=== PATIENT | female | born 1970 | race Caucasian/White ===

== ENCOUNTER 2023-12-27 08:57 | Emergency (ER) | payer MEDICAID, SELFPAY ==
[2023-12-27] VITALS (13 sets, daily range): BP systolic 115–168; BP diastolic 89–114; PULSE 79–104; RESP 11–22; TEMP 37.4; O2SAT 94–99
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
[2023-12-27 09:38] LABS: Abs Immature Grans 0.02 10^3/uL (0.0-0.06); Absolute Basophil Count 0.07 10^3/uL (0.0-0.2); Absolute Eosinophil Count 0.14 10^3/uL (0.0-0.7); Absolute Lymphocyte Count 1.69 10^3/uL (1.2-3.4); Absolute Monocyte Count 0.65 10^3/uL (0.1-0.8); Absolute Neutrophil Count 3.62 10^3/uL (1.2-6.7); Basophils % 1.1 %; Eosinophils % 2.3 %; HCT 39.6 % (36.0-46.0); HGB 13.4 g/dL (11.2-15.7); Immature Grans % 0.3 %; Lymphocytes % 27.3 %; MCHC 33.8 % (32.0-36.0); MCV 95 fL (80-95); Monocytes % 10.5 %; Neutrophils % 58.5 %; Platelet Count 303 10^3/uL (130-400); RBC 4.19 10^6/uL (3.93-5.22); RDW 13.3 % (11.7-14.6); RDW-SD 46.5 fL; WBC 6.19 10^3/uL (4.4-10.8)
[2023-12-27 09:40] LABS: Lactate 2.9 mmol/L (0.6-1.4)
[2023-12-27] MEDS: Ondansetron 4 MG/2 ML VIAL IVP (09:49)
[2023-12-27] MEDS: LORazepam 2 MG/ML VIAL 1 MG IVP (09:49)
[2023-12-27 09:53] LABS: Bilirubin Negative (Negative); Blood Negative (Negative); Clarity Clear (Clear); Glucose Negative (Negative); Ketones Negative (Negative); Leukocyte Esterase Negative (Negative); Nitrite Negative (Negative); Urobilinogen 0.2 mg/dL (Up to 0.2)
[2023-12-27] MEDS: MAGNESIUM SULFATE 8.12 MEQ, MULTIVITAMIN 10 ML, THIAMINE 100 MG, FOLIC ACID 1 MG in Nor... 168.867 MG IV (09:57)
[2023-12-27 10:10] LABS: ALT 148 U/L (14-59); AST 110 U/L (15-37); Albumin 4.4 g/dL (3.4-5.0); Alkaline Phosphatase 114 U/L (46-116); Anion Gap 14.2 mmol/L (3-11); BUN 6 mg/dL (7-18); Bilirubin, Direct 0.2 mg/dL (0.0-0.2); Bilirubin, Total 0.67 mg/dL (0.2-1.0); CO2 24.8 mmol/L (21.0-32.0); CREATININE 0.6 mg/dL (0.55-1.02); Calcium 10.1 mg/dL (8.5-10.1); Chloride 97 mmol/L (98-107); ETHANOL BLOOD 107.8 mg/dL (<10); Estimated GFR 107.26 (mL/min/1.73m2); Glucose 85 mg/dL (74-106); Lipase 53 U/L (16-77); Magnesium 1.8 mg/dL (1.8-2.4); Potassium 3.8 mmol/L (3.5-5.1); Sodium 136 mmol/L (136-145); TSH (W/Ref FT4) 2.97 uIU/mL (0.36-3.74); Total Protein 8.5 g/dL (6.4-8.2)
[2023-12-27 10:15] LABS: Procalcitonin < 0.1 ng/mL
[2023-12-27] MEDS: Losartan 50 MG TAB 100 MG PO (10:40)
[2023-12-27] MEDS: dilTIAZem CD 120 MG CAPCR PO (10:40)
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
[2023-12-27 13:07] LABS: Lactate 2.1 mmol/L (0.6-1.4)
--- NOTE | 2024-01-02 02:58 | NUR.NOTE ---
Pt is being seen at [facility] a release of information has been sent over to [facility] and last labs and discharge summary has been sent over to [facility]
== END 2023-12-27 14:11 | disposition home or self-care (01) ==
PROVIDERS: Emergency Provider Physician Assistant; PCP Family Medicine
DX: M25.532 Pain in left wrist (principal); I10 Essential (primary) hypertension; F10.120 Alcohol abuse with intoxication, uncomplicated; Y90.5 Blood alcohol level of 100-119 mg/100 ml
CPT/HCPCS: 80048; 80076; 83690; 84145; 96365; 96366; 96375; 99284; 73110; 80320; 81003; 83605; 83735; 84443; 85025; J2060; J2405; J3411; J3475

== ENCOUNTER 2024-05-03 22:04 | Emergency (ER) | payer MEDICAID, SELFPAY ==
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
[2024-05-03 22:10] VITALS: BP 126/87; PULSE 119; RESP 16; TEMP 36.6; O2SAT 98
[2024-05-03] MEDS: Ondansetron O.D.T. 4 MG TABEF PO (23:08)
--- NOTE | 2024-05-03 23:12 | NUR.NOTE ---
Nursing Note: unable to complete full medication reconciliation as patient is unsure of the names of all of her meds. She states that she receives them from [facility] and we are unable to get information at this hour.
== END 2024-05-03 23:24 ==
PROVIDERS: Emergency Provider Emergency Medicine; PCP Family Medicine
DX: Z04.89 Encounter for examination and observation for other specified reasons (principal); I10 Essential (primary) hypertension
CPT/HCPCS: 99283

== ENCOUNTER 2024-05-04 08:41 | Emergency (ER) | payer MEDICAID, SELFPAY ==
[2024-05-04] VITALS (10 sets, daily range): BP systolic 122–171; BP diastolic 92–122; PULSE 95–122; RESP 15–25; O2SAT 95–98
--- NOTE | 2024-05-04 08:45 | DI.RAD_ITS ---
Exam(s) XR HAND RT COMPLETE XR HAND LT COMPLETE EXAM: XR HAND LT COMPLETE CLINICAL HISTORY: hand injury. TECHNIQUE: 2D digital imaging was performed. Three views of both hands. COMPARISON: No exams were available for comparison FINDINGS: BONES: No acute fracture is present. No bony destructive lesion is seen. JOINTS: No dislocation present. [id number] degenerative changes are noted in the interphalange al joints and 1st carpal metacarpal joints. SOFT TISSUE: Normal. IMPRESSION: No acute abnormality. DATA REPOSITORY: RADIATION DOSE DELIVERED:
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
[2024-05-04 08:57] LABS: Abs Immature Grans 0.03 10^3/uL (0.0-0.06); Absolute Basophil Count 0.07 10^3/uL (0.0-0.2); Absolute Eosinophil Count 0.21 10^3/uL (0.0-0.7); Absolute Lymphocyte Count 1.65 10^3/uL (1.2-3.4); Absolute Monocyte Count 0.82 10^3/uL (0.1-0.8); Absolute Neutrophil Count 5.89 10^3/uL (1.2-6.7); Basophils % 0.8 %; Eosinophils % 2.4 %; HCT 36.9 % (36.0-46.0); HGB 12.4 g/dL (11.2-15.7); Immature Grans % 0.3 %; MCH 31.5 pg (27.0-33.0); MCHC 33.6 % (32.0-36.0); MCV 94 fL (80-95); MPV 8.8 fL (8.0-11.0); Monocytes % 9.5 %; Platelet Count 264 10^3/uL (130-400); RBC 3.94 10^6/uL (3.93-5.22); RDW 12.4 % (11.7-14.6); RDW-SD 42.8 fL; WBC 8.67 10^3/uL (4.4-10.8)
--- OUTSIDE RECORDS SUMMARY | 2024-05-04 08:58 | XMS_ITS ---
Author Organization Unknown Address [address] [place] [address] [phone] Phone Care Team Providers Care Shareholder Name Role Phone SHAUNA BATESRachelle Mcnally Attending Unavailable Social History Type Status Start Date End Date Code Code Syst em Smoking History Never smoker (Never Smoked) 708884045 SNOMED CT Sex Female Medications Medication Start Date End Date Route Frequency Dose Code Code System Medication Instructions Home Meds hydroCHLOROthiazide 25MG Oral Tablet 06/04/2017 Unknown ORAL DAILY 25 MILLIGRAMS 441365 RxNorm TAKE 25 MILLIGRAMS ORAL DAILY Montelukast Sodium 10MG Oral Tablet 06/04/2017 Unknown ORAL DAILY 10 MILLIGRAMS 709369 RxNorm TAKE 10 MILLIGRAMS ORAL DAILY Mapap 325MG Oral Tablet 06/10/2017 08/09/19 24 BY MOUTH NEEDED EVERY 4 HOURS 650 MILLIGRAMS 085648 RxNorm TAKE 650 MILLIGRAMS BY MOUTH NEEDED EVERY 4 HOURS ProAir HFA 0.09MG/1Actuation Inhalation Suspension 06/10/2017 Unknown INHAL ATION NEEDED FOUR TIMES A DAY 1 unit(s) 736245 RxNorm 1 EACH INHALATION NEEDED FOUR TIMES A DAY Symbicort 160/4.5 160MCG-4.5MCG/1 Actu Inhalation Aerosol Liquid 2022 Unknown INHAL ATION TWICE A DAY 2 PUFF 9505708 RxNorm 2 PUFF INHALATION TWICE A DAY predniSONE 20MG Oral Tablet 2022 08/09/19 24 ORAL DAILY 3 TABLET 861732 RxNorm TAKE 3 TABLET ORAL DAILY Benzonatate 200MG Oral Capsule, Liquid Filled 2022 08/09/19 24 ORAL NEEDED EVERY 4 HOURS 1 CAPSULE 276766 RxNorm TAKE 1 CAPSULE ORAL NEEDED EVERY 4 HOURS FOR Cough Zithromax 250MG Oral Tablet 08/10/2023 Unknown ORAL DAILY 1 TABLET 391247 RxNorm TAKE 1 TABLET ORAL DAILY Tessalon Perles 100MG Oral Capsule, Liquid Filled 08/10/2023 Unknown ORAL THREE TIMES A DAY 1 CAPSULE 300091 RxNorm TAKE 1 CAPSULE ORAL THREE TIMES A DAY predniSONE 20MG Oral Tablet 08/10/2023 Unknown ORAL DAILY 2 TABLET 856155 RxNorm TAKE 2 TABLET ORAL DAILY Assessment You had the following problems:ACUTE EXACERBATION OF COPD Hospital Discharge Instructions Should you have any questions prior to discharge, please contact a member of your healthcare team. If you have left the hospital and have any questions, please contact your primary care physician. Reason For Referral No Data Found Problems Problem Start Date Resolved Date Status Code Code System ACUTE EXACERBATION OF COPD active 185 604590 SNOMED-CT ASTHMA 2022 resolved 794383645 SNOMED-CT HTN 2022 resolved 91123927 SNOMED-CT COPD 2022 resolved 29880729 SNOMED-CT POST-TRAUMATIC STRESS DISORDER 01/02/2024 resolved 41337069 SNOMED-CT DEPRESSION 01/02/2024 resolved 82641110 SNOMED-C T ANXIETY 01/02/2024 resolved 63562478 SNOMED-CT Allergies and Adverse Reactions Allergy Substance Reaction Severity Start Date Concern Status Code Code System SULFA (sulfonamide) Anaphylaxis (SNOMED-CT: 78946111) Active 76929781 SNOMED-CT PENICILLINS (CLASS) ANAPHYLAXIS (SNOMED-CT: null), SWELLING (SNOMED-CT: null), RASH (SNOMED-CT: null) Active 6053098 SNOMED-CT PORK Anaphylaxis (SNOMED-CT: 04510885) Active CODEINE RASH (SNOMED-CT: null) Active 2670 RxNorm HAZELNUTS Anaphylaxis (SNOMED-CT: 25751886) Active 045619217 SNOMED-CT Plan of Treatment X-RAY 05/05/2022 Encounters Encounter Diagnosis Start Date Code Code Sys tem Unilateral primary osteoarthritis, right hip SNOMED-CT Personal Care Team Section Performer Name Performer Role Active Date Inactive Da te
--- OUTSIDE RECORDS SUMMARY | 2024-05-04 08:58 | XMS_ITS ---
Author Organization Unknown Address [address] [place] [address] [phone] Phone Care Team Providers Care Piano Bench Assembler Name Role Phone SHAUNA Mcnally Attending Unavailable Results XR FINGER(S) 2V OR MORE LT - Completed: 05/05/2022 14:07 [facility] [place], [place] [address] [facility] [employer] [facility] PROVIDER REPORT Patient Name: VIVIANA BENEDICT MRN: Sex: : Age: [id number] F 1970 51 Account: Accession: Admit: StayType: [id number] 05/05/2022 O/P Ordered: Order ID: Submitted: Ordering Provider: 05/05/2022 13:51 [id number] KT GILBERT VILLATORO Completed: Technologist: Resulted: 05/05/2022 14:07 SLG 05/05/2022 18:06 Study Description: XR FINGER(S) 2V OR MORE LT Study Reason: LT THUMB PAIN 2D digital imaging was performed. COMPARISON: No exams were available for comparison FINDINGS: There is no evidence of fracture or dislocation. No abnormal soft tissue densities. Mild degenerative changes. No osteophytes. First carpometacarpal joint appears unremarkable. IMPRESSION: No fracture evident. Report Digitally Signed by Carmine Castillo on 05/05/2022 06:06 PM EST XR HIP 2V OR 3V RT* - Comple mateo: 05/05/2022 14:07 LOINC: [facility] [place], [place] [address] [facility] PROVIDER REPORT Patient Name: VIVIANA BENEDICT MRN: Sex: : Age: [id number] F 1970 51 Account: Accession: Admit: StayType: [id number] 05/05/2022 O/P Ordered: Order ID: Submitted: Ordering Provider: 05/05/2022 13:51 [id number] GILBERT ZELAYA Completed: Technologist: Resulted: 05/05/2022 14:07 SLG 05/05/2022 18:16 Study Description: XR HIP 2V OR 3V RT* Study Reason: OSTEOARTHRITIS RT HIP TECHNIQUE: 2D digital imaging was performed. COMPARISON: No exams were available for comparison FINDINGS: NUMBER OF VIEWS: 2 No evidence of pelvic nor hip fracture. No hip joint space narrowing. No osteophytes. Bone density normal. No developmental hip dysplasia. SI joints unremarkable. IMPRESSION: No significant radiographic findings. Report Digitally Signed by Carmine Castillo on 05/05/2022 06:16 PM EST Social History Type Status Start Date End Date Code Code Syst em Smoking History Never smoker (Never Smoked) 569852217 SNOMED CT Sex Female Medications Medication Start Date End Date Route Frequency Dose Code Code System Medication Instructions Home Meds hydroCHLOROthiazide 25MG Oral Tablet 06/04/2017 Unknown ORAL DAILY 25 MILLIGRAMS 229108 RxNorm TAKE 25 MILLIGRAMS ORAL DAILY Montelukast Sodium 10MG Oral Tablet 06/04/2017 Unknown ORAL DAILY 10 MILLIGRAMS 20010610 RxNorm TAKE 10 MILLIGRAMS ORAL DAILY Mapap 325MG Oral Tablet 06/10/2017 08/09/19 24 BY MOUTH NEEDED EVERY 4 HOURS 650 MILLIGRAMS 200407 RxNorm TAKE 650 MILLIGRAMS BY MOUTH NEEDED EVERY 4 HOURS ProAir HFA 0.09MG/1Actuation Inhalation Suspension 06/10/2017 Unknown INHAL ATION NEEDED FOUR TIMES A DAY 1 unit(s) 988228 RxNorm 1 EACH INHALATION NEEDED FOUR TIMES A DAY Symbicort 160/4.5 160MCG-4.5MCG/1 Actu Inhalation Aerosol Liquid 2022 Unknown INHAL ATION TWICE A DAY 2 PUFF 1306315 RxNorm 2 PUFF INHALATION TWICE A DAY predniSONE 20MG Oral Tablet 2022 08/09/19 24 ORAL DAILY 3 TABLET 673271 RxNorm TAKE 3 TABLET ORAL DAILY Benzonatate 200MG Oral Capsule, Liquid Filled 2022 08/09/19 24 ORAL NEEDED EVERY 4 HOURS 1 CAPSULE 913172 RxNorm TAKE 1 CAPSULE ORAL NEEDED EVERY 4 HOURS FOR Cough Zithromax 250MG Oral Tablet 08/10/2023 Unknown ORAL DAILY 1 TABLET 367885 RxNorm TAKE 1 TABLET ORAL DAILY Tessalon Perles 100MG Oral Capsule, Liquid Filled 08/10/2023 Unknown ORAL THREE TIMES A DAY 1 CAPSULE 138761 RxNorm TAKE 1 CAPSULE ORAL THREE TIMES A DAY predniSONE 20MG Oral Tablet 08/10/2023 Unknown ORAL DAILY 2 TABLET 080675 RxNorm TAKE 2 TABLET ORAL DAILY Assessment [...] System ACUTE EXACERBATION OF COPD active 185 214923 SNOMED-CT ASTHMA 2022 resolved 188529877 SNOMED-CT HTN 2022 resolved 05306391 SNOMED-CT COPD 2022 resolved 39192132 SNOMED-CT POST-TRAUMATIC STRESS DISORDER 01/02/2024 resolved 71160017 SNOMED-CT DEPRESSION 01/02/2024 resolved 97623936 SNOMED-C T ANXIETY 01/02/2024 resolved 05716455 SNOMED-CT Allergies and Adverse Reactions Allergy Substance Reaction Severity Start Date Concern Status Code Code System SULFA (sulfonamide) Anaphylaxis (SNOMED-CT: 39020661) Active 27264443 SNOMED-CT PENICILLINS (CLASS) ANAPHYLAXIS (SNOMED-CT: null), SWELLING (SNOMED-CT: null), RASH (SNOMED-CT: null) Active 7818874 SNOMED-CT PORK Anaphylaxis (SNOMED-CT: 35068070) Active CODEINE RASH (SNOMED-CT: null) Active 2670 RxNorm HAZELNUTS Anaphylaxis (SNOMED-CT: 05996642) Active 394132032 SNOMED-CT Plan of Treatment X-RAY 05/05/2022 Encounters Encounter Diagnosis Start Date Code Code Sys tem Unilateral primary osteoarthritis, right hip 2 SNOMED-CT Personal Care Team Section Performer Name Performer Role Active Date Inactive Da te
--- OUTSIDE RECORDS SUMMARY | 2024-05-04 08:58 | XMS_ITS ---
Author Organization Unknown Address [address] [place] [address] [phone] Phone Care Team Providers Care Director Of Home Economics Name Role Phone SHAUNA BATESRachelle Mcnally Attending Unavailable Social History Type Status Start Date End Date Code Code Syst em Smoking History Never smoker (Never Smoked) 760018738 SNOMED CT Sex Female Medications Medication Start Date End Date Route Frequency Dose Code Code System Medication Instructions Home Meds hydroCHLOROthiazide 25MG Oral Tablet 06/04/2017 Unknown ORAL DAILY 25 MILLIGRAMS 589005 RxNorm TAKE 25 MILLIGRAMS ORAL DAILY Montelukast Sodium 10MG Oral Tablet 06/04/2017 Unknown ORAL DAILY 10 MILLIGRAMS 753142 RxNorm TAKE 10 MILLIGRAMS ORAL DAILY Mapap 325MG Oral Tablet 06/10/2017 08/09/19 24 BY MOUTH NEEDED EVERY 4 HOURS 650 MILLIGRAMS 407001 RxNorm TAKE 650 MILLIGRAMS BY MOUTH NEEDED EVERY 4 HOURS ProAir HFA 0.09MG/1Actuation Inhalation Suspension 06/10/2017 Unknown INHAL ATION NEEDED FOUR TIMES A DAY 1 unit(s) 416357 RxNorm 1 EACH INHALATION NEEDED FOUR TIMES A DAY Symbicort 160/4.5 160MCG-4.5MCG/1 Actu Inhalation Aerosol Liquid 2022 Unknown INHAL ATION TWICE A DAY 2 PUFF 0495365 RxNorm 2 PUFF INHALATION TWICE A DAY predniSONE 20MG Oral Tablet 2022 08/09/19 24 ORAL DAILY 3 TABLET 649076 RxNorm TAKE 3 TABLET ORAL DAILY Benzonatate 200MG Oral Capsule, Liquid Filled 2022 08/09/19 24 ORAL NEEDED EVERY 4 HOURS 1 CAPSULE 217157 RxNorm TAKE 1 CAPSULE ORAL NEEDED EVERY 4 HOURS FOR Cough Zithromax 250MG Oral Tablet 08/10/2023 Unknown ORAL DAILY 1 TABLET 095083 RxNorm TAKE 1 TABLET ORAL DAILY Tessalon Perles 100MG Oral Capsule, Liquid Filled 08/10/2023 Unknown ORAL THREE TIMES A DAY 1 CAPSULE 201527 RxNorm TAKE 1 CAPSULE ORAL THREE TIMES A DAY predniSONE 20MG Oral Tablet 08/10/2023 Unknown ORAL DAILY 2 TABLET 977028 RxNorm TAKE 2 TABLET ORAL DAILY Assessment [...] System ACUTE EXACERBATION OF COPD active 185 535914 SNOMED-CT ASTHMA 2022 resolved 299386670 SNOMED-CT HTN 2022 resolved 02680154 SNOMED-CT COPD 2022 resolved 24857938 SNOMED-CT POST-TRAUMATIC STRESS DISORDER 01/02/2024 resolved 69497744 SNOMED-CT DEPRESSION 01/02/2024 resolved 66278569 SNOMED-C T ANXIETY 01/02/2024 resolved 35689488 SNOMED-CT Allergies and Adverse Reactions Allergy Substance Reaction Severity Start Date Concern Status Code Code System SULFA (sulfonamide) Anaphylaxis (SNOMED-CT: 12461286) Active 32825220 SNOMED-CT PENICILLINS (CLASS) ANAPHYLAXIS (SNOMED-CT: null), SWELLING (SNOMED-CT: null), RASH (SNOMED-CT: null) Active 0823928 SNOMED-CT PORK Anaphylaxis (SNOMED-CT: 22264148) Active CODEINE RASH (SNOMED-CT: null) Active 2670 RxNorm HAZELNUTS Anaphylaxis (SNOMED-CT: 58550840) Active 854813471 SNOMED-CT Plan of Treatment X-RAY 05/05/2022 Encounters Encounter Diagnosis Start Date Code Code Sys tem Unilateral primary osteoarthritis, right hip 3 SNOMED-CT Personal Care Team Section Performer Name Performer Role Active Date Inactive Da te
--- OUTSIDE RECORDS SUMMARY | 2024-05-04 08:58 | XMS_ITS ---
Author Organization Unknown Address [address] [place] [address] [phone] Phone Care Team Providers Care Distribution Designer Name Role Phone CHARISSE LYON Registered Nurse Unavailable MIGUEL Persaud Attending Unavailable SHAUNA Mcnally Primary Unavailable UNLISTED PROVIDER - REQUESTED Xhandoff Un available Results XR CHEST 2V PA AND LATERAL - Completed: 2022 09:23 LOINC: [facility] [place], [place] [address] [employer] THER[employer]IST REPORT Patient Name: VIVIANA BENEDICT MRN: Sex: : Age: [id number] F 1970 52 Account: Accession: Admit: StayType: [id number] 12/05/2022 E/R Ordered: Order ID: Submitted: Ordering Provider: 2022 00:38 [id number] CHAPARRO BARTLETT Completed: Technologist: Resulted: 2022 00:39 2022 08:54 Study Description: XR CHEST 2V PA AND LATERAL Study Reason: SOB TECHNIQUE: 2D Digital imaging Number of views: 2 Views COMPARISON: 13 January 2017 FINDINGS: Leads overlie the chest LUNGS: Clear. PLEURA: No pleural abnormality seen. HEART: Normal size. AORTA: Normal diameter. BONES: Unremarkable for age. SOFT TISSUES: Unremarkable. IMPRESSION: No acute findings. Report Digitally Signed by Angeli Archer on 2022 08:54 AM EDT Social History Type Status Start Date End Date Code Code Syst em Smoking History Never smoker (Never Smoked) 951120115 SNOMED CT Sex Female Vital Signs Vital Sign Value Unit [place] Value [place] Unit Date/Time Recent/Initial? Code Code System Body Mass Index 21.03 kg/m2 2022 00:11 Initial 13795 -5 LOINC Systolic Blood Pressure 145 mm[Hg] 2022 01:26 Most Recent 8480- 6 LOINC Diastolic Blood Pressure 98 mm[Hg] 2022 01:26 Most Recent 8462- 4 LOINC Systolic Blood Pressure 168 mm[Hg] 2022 00:11 Initial 8480- 6 LOINC Diastolic Blood Pressure 119 mm[Hg] 2022 00:11 Initial 8462- 4 LOINC Body Surface Area 1.51 m2 2022 00:11 Initial 3140- 1 LOINC Height 157.480 0 cm 62.00 in 2022 00:11 Initial 8302- 2 LOINC O2 Saturation 100 % 2022 01:26 Most Recent 69617 -5 LOINC O2 Saturation 100 % 2022 00:11 Initial 57677 -5 LOINC Pulse 79.0 /min 2022 01:26 Most Recent 8867- 4 LOINC Pulse 84.0 /min 2022 00:11 Initial 8867- 4 LOINC Respiration 18 /min 12/07/19 01:26 Most Recent 9279- 1 LOINC Respiration 20 /min 12/07/19 00:11 Initial 9279- 1 LOINC Temperature 36.0 Brittaney 96.8 F 12/07/19 23 00:11 Initial 8310- 5 LOINC Weight 52.16 kg 115.00 lbs 2022 00:11 Initial 58008 -7 [facility] Medications Medication Start Date End Date Route Frequency Dose Code Code System Medication Instructions Home Meds hydroCHLOROthiazide 25MG Oral Tablet 06/04/2017 Unknown ORAL DAILY 25 MILLIGRAMS 841938 RxNorm TAKE 25 MILLIGRAMS ORAL DAILY Montelukast Sodium 10MG Oral Tablet 06/04/2017 Unknown ORAL DAILY 10 MILLIGRAMS 20010610 RxNorm TAKE 10 MILLIGRAMS ORAL DAILY Mapap 325MG Oral Tablet 06/10/2017 08/09/19 24 BY MOUTH NEEDED EVERY 4 HOURS 650 MILLIGRAMS 148384 RxNorm TAKE 650 MILLIGRAMS BY MOUTH NEEDED EVERY 4 HOURS ProAir HFA 0.09MG/1Actuation Inhalation Suspension 06/10/2017 Unknown INHAL ATION NEEDED FOUR TIMES A DAY 1 unit(s) 275117 RxNorm 1 EACH INHALATION NEEDED FOUR TIMES A DAY Symbicort 160/4.5 160MCG-4.5MCG/1 Actu Inhalation Aerosol Liquid 2022 Unknown INHAL ATION TWICE A DAY 2 PUFF 3857431 RxNorm 2 PUFF INHALATION TWICE A DAY predniSONE 20MG Oral Tablet 2022 08/09/19 24 ORAL DAILY 3 TABLET 928068 RxNorm TAKE 3 TABLET ORAL DAILY Benzonatate 200MG Oral Capsule, Liquid Filled 2022 08/09/19 24 ORAL NEEDED EVERY 4 HOURS 1 CAPSULE 682124 RxNorm TAKE 1 CAPSULE ORAL NEEDED EVERY 4 HOURS FOR Cough Zithromax 250MG Oral Tablet 08/10/2023 Unknown ORAL DAILY 1 TABLET 243448 RxNorm TAKE 1 TABLET ORAL DAILY Tessalon Perles 100MG Oral Capsule, Liquid Filled 08/10/2023 Unknown ORAL THREE TIMES A DAY 1 CAPSULE 357531 RxNorm TAKE 1 CAPSULE ORAL THREE TIMES A DAY predniSONE 20MG Oral Tablet 08/10/2023 Unknown ORAL DAILY 2 TABLET 533924 RxNorm TAKE 2 TABLET ORAL DAILY Assessment You had the following problems:ACUTE EXACERBATION OF COPD Hospital Discharge Instructions Should you have any questions prior to discharge, please contact a member of your healthcare team. If you have left the hospital and have any questions, please contact your primary care physician. Reason For Referral No Data Found Procedures Procedure Name Date Status Code Code Syste m PRESSURIZED/NONPRESSURIZED I NHALATION TREATMENT 12/05/2022 completed 54954336 SNOMEDCT Problems Problem Start Date Resolved Date Status Code Code System ACUTE EXACERBATION OF COPD active 185 611984 SNOMED-CT ASTHMA 2022 resolved 220567781 SNOMED-CT HTN 2022 resolved 89321088 SNOMED-CT COPD 2022 resolved 30301918 SNOMED-CT POST-TRAUMATIC STRESS DISORDER 01/02/2024 resolved 83411472 SNOMED-CT DEPRESSION 01/02/2024 resolved 84570603 SNOMED-C T ANXIETY 01/02/2024 resolved 29366941 SNOMED-CT Allergies and Adverse Reactions Allergy Substance Reaction Severity Start Date Concern Status Code Code System SULFA (sulfonamide) Anaphylaxis (SNOMED-CT: 39809778) Active 54461268 SNOMED-CT PENICILLINS (CLASS) ANAPHYLAXIS (SNOMED-CT: null), SWELLING (SNOMED-CT: null), RASH (SNOMED-CT: null) Active 9841479 SNOMED-CT PORK Anaphylaxis (SNOMED-CT: 66015101) Active CODEINE RASH (SNOMED-CT: null) Active 2670 RxNorm HAZELNUTS Anaphylaxis (SNOMED-CT: 46473933) Active 960257868 SNOMED-CT Plan of Treatment X-RAY 05/05/2022 OUTPATIENT PLAN: Additional Physician Instructions: Use spacer with albuterol. Your prescription was printed and electronically sent to [facility] in [place]. Discharge Medications Medication Dosage Route Frequency Prescribing MD Special Instructions Symbicort 160/4.5 160MCG-4.5MCG/1 Actu Inhalation Aerosol Liquid (e-prescribed) 2 PUFF INHALATION TWICE A DAY MIGUEL Persaud 2 PUFF INHALATION TWICE A DAY predniSONE 20MG Oral Tablet (e-prescribed) 3 TABLET ORAL DAILY MIGUEL Persaud TAKE 3 TABLET ORAL DAILY Benzonatate 200MG Oral Capsule, Liquid Filled (printed) 1 CAPSULE ORAL NEEDED EVERY 4 HOURS MIGUEL Persaud TAKE 1 CAPSULE ORAL NEEDED EVERY 4 HOURS FOR Cough HOSPITAL COURSE AND TESTING: Medications given this visit: Ordered & Completed Meds Table Ordered Medication Start Date/Time Dosage Route Frequency Status ALBUTEROL/IPRATROP UPDRAFT:2.5/0.5MG/3ML 2022 00:32 3 ML INHALATION X1 completed MethylPREDNISolone SUC INJ SDV:125MG/2ML 2022 00:32 125 MG IV PUSH X1 completed GuaiFENesin SYRUP UD: 100MG/5ML 2022 01:25 10 ML ORAL X1 active BENZONATATE CAPSULE: 100MG 2022 01:25 100 MG ORAL X1 active RADIOLOGY RESULTS: XRAY 2 VIEW CHEST - interpreted by ER MD reveals normal lung feranndo bilaterally without pneumonia or pneumothorax, normal appearing mediastinum, no visible rib abnormalities. This is a normal CXR. Encounters Encounter Diagnosis Start Date Code Code Sys tem Acute exacerbation of chroni c obstructive airways disease 12/05/2022 087313326 SNOMED-CT Personal Care Team Section Performer Name Performer Role Active Date Inactive Da te
--- OUTSIDE RECORDS SUMMARY | 2024-05-04 08:59 | XMS_ITS ---
Author Organization Unknown Address [address] [place] [address] [phone] Phone Care Team Providers Care Global Product Manager Name Role Phone PATIENCE RODRIGUEZSER Registered Nurse Unavailable JADE Carr Attending Unavailable SHAUNA Mcnally Primary Unavailable UNLISTED PROVIDER - REQUESTED Xhandoff Un available Social History Type Status Start Date End Date Code Code Syst em Smoking History Never smoker (Never Smoked) 555232530 SNOMED CT Sex Female Vital Signs Vital Sign Value Unit [place] Value [place] Unit Date/Time Recent/Initial? Code Code System Body Mass Index 21.03 kg/m2 11/30/2023 19:59 Initial 90523 -5 [facility] Systolic Blood Pressure 146 mm[Hg] 11/30/2023 19:59 Initial 8480- 6 LOINC Diastolic Blood Pressure 97 mm[Hg] 11/30/2023 19:59 Initial 8462- 4 LOINC Body Surface Area 1.51 m2 11/30/2023 19:59 Initial 3140- 1 LOINC Height 157.480 0 cm 62.00 in 11/30/2023 19:59 Initial 8302- 2 LOINC O2 Saturation 99 % 2023 19:59 Initial 76459 -5 INC Pulse 71.0 /min 11/30/2023 19:59 Initial 8867- 4 LOINC Respiration 19 /min 11/30/19 19:59 Initial 9279- 1 LOINC Temperature 36.0 Brittaney 96.8 F 11/30/19 19:59 Initial 8310- 5 LOINC Weight 52.16 kg 115.00 lbs 11/30/2023 19:59 Initial 56630 -7 [facility] Medications Medication Start Date End Date Route Frequency Dose Code Code System Medication Instructions Home Meds hydroCHLOROthiazide 25MG Oral Tablet 06/04/2017 Unknown ORAL DAILY 25 MILLIGRAMS 522113 RxNorm TAKE 25 MILLIGRAMS ORAL DAILY Montelukast Sodium 10MG Oral Tablet 06/04/2017 Unknown ORAL DAILY 10 MILLIGRAMS 20010610 RxNorm TAKE 10 MILLIGRAMS ORAL DAILY ProAir HFA 0.09MG/1Actuation Inhalation Suspension 06/10/2017 Unknown INHAL ATION NEEDED FOUR TIMES A DAY 1 unit(s) 592421 RxNorm 1 EACH INHALATION NEEDED FOUR TIMES A DAY Symbicort 160/4.5 160MCG-4.5MCG/1 Actu Inhalation Aerosol Liquid 2022 Unknown INHAL ATION TWICE A DAY 2 PUFF 2436694 RxNorm 2 PUFF INHALATION TWICE A DAY Zithromax 250MG Oral Tablet 08/10/2023 Unknown ORAL DAILY 1 TABLET 407226 RxNorm TAKE 1 TABLET ORAL DAILY Tessalon Perles 100MG Oral Capsule, Liquid Filled 08/10/2023 Unknown ORAL THREE TIMES A DAY 1 CAPSULE 298346 RxNorm TAKE 1 CAPSULE ORAL THREE TIMES A DAY predniSONE 20MG Oral Tablet 08/10/2023 Unknown ORAL DAILY 2 TABLET 298416 RxNorm TAKE 2 TABLET ORAL DAILY Assessment [...] System ACUTE EXACERBATION OF COPD active 185 231766 SNOMED-CT ASTHMA 2022 resolved 019850862 SNOMED-CT HTN 2022 resolved 24942431 SNOMED-CT COPD 2022 resolved 63161887 SNOMED-CT POST-TRAUMATIC STRESS DISORDER 01/02/2024 resolved 84125794 SNOMED-CT DEPRESSION 01/02/2024 resolved 97905441 SNOMED-C T ANXIETY 01/02/2024 resolved 01757908 SNOMED-CT Allergies and Adverse Reactions Allergy Substance Reaction Severity Start Date Concern Status Code Code System SULFA (sulfonamide) Anaphylaxis (SNOMED-CT: 54344426) Active 15255516 SNOMED-CT PENICILLINS (CLASS) ANAPHYLAXIS (SNOMED-CT: null), SWELLING (SNOMED-CT: null), RASH (SNOMED-CT: null) Active 9802220 SNOMED-CT PORK Anaphylaxis (SNOMED-CT: 94566902) Active CODEINE RASH (SNOMED-CT: null) Active 2030 RxNorm HAZELNUTS Anaphylaxis (SNOMED-CT: 52819928) Active 440177903 SNOMED-CT Plan of Treatment X-RAY 05/05/2022 Encounters Encounter Diagnosis Start Date Code Code Sys tem Laceration without foreign b zaid of left forearm, initial encounter 11/30/2023 SNOMED-CT Personal Care Team Section Performer Name Performer Role Active Date Inactive Da te
--- OUTSIDE RECORDS SUMMARY | 2024-05-04 08:59 | XMS_ITS ---
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 TECHNIQUE: 2D digital imaging was performed. COMPARISON: XR CHEST 2V PA AND LATERAL from 08/09/2023 FINDINGS: 2 views: Heart size is normal. The mediastinum is not widened. Lungs are clear. No infiltrates nor pleural effusions. IMPRESSION: No acute pulmonary findings. DATA REPOSITORY: RADIATION DOSE DELIVERED: Electronically signed by: Carmine Castillo Dictated: 09/25/2023 11:52 Social History Type Status Start Date End Date Code Code Syst em Smoking History Never smoker (Never Smoked) 536885468 SNOMED CT Sex Female Medications Medication Start Date End Date Route Frequency Dose Code Code System Medication Instructions Home Meds hydroCHLOROthiazide 25MG Oral Tablet 06/04/2017 Unknown ORAL DAILY 25 MILLIGRAMS 087702 RxNorm TAKE 25 MILLIGRAMS ORAL DAILY Montelukast Sodium 10MG Oral Tablet 06/04/2017 Unknown ORAL DAILY 10 MILLIGRAMS 751338 RxNorm TAKE 10 MILLIGRAMS ORAL DAILY ProAir HFA 0.09MG/1Actuation Inhalation Suspension 06/10/2017 Unknown INHAL ATION NEEDED FOUR TIMES A DAY 1 unit(s) 739244 RxNorm 1 EACH INHALATION NEEDED FOUR TIMES A DAY Symbicort 160/4.5 160MCG-4.5MCG/1 Actu Inhalation Aerosol Liquid 2022 Unknown INHAL ATION TWICE A DAY 2 PUFF 7499295 RxNorm 2 PUFF INHALATION TWICE A DAY Zithromax 250MG Oral Tablet 08/10/2023 Unknown ORAL DAILY 1 TABLET 503504 RxNorm TAKE 1 TABLET ORAL DAILY Tessalon Perles 100MG Oral Capsule, Liquid Filled 08/10/2023 Unknown ORAL THREE TIMES A DAY 1 CAPSULE 233462 RxNorm TAKE 1 CAPSULE ORAL THREE TIMES A DAY predniSONE 20MG Oral Tablet 08/10/2023 Unknown ORAL DAILY 2 TABLET 070512 RxNorm TAKE 2 TABLET ORAL DAILY Assessment [...] System ACUTE EXACERBATION OF COPD active 185 518783 SNOMED-CT ASTHMA 2022 resolved 361868075 SNOMED-CT HTN 2022 resolved 98553996 SNOMED-CT COPD 2022 resolved 01342686 SNOMED-CT POST-TRAUMATIC STRESS DISORDER 01/02/2024 resolved 44654061 SNOMED-CT DEPRESSION 01/02/2024 resolved 79652859 SNOMED-C T ANXIETY 01/02/2024 resolved 55242257 SNOMED-CT Allergies and Adverse Reactions Allergy Substance Reaction Severity Start Date Concern Status Code Code System SULFA (sulfonamide) Anaphylaxis (SNOMED-CT: 12797719) Active 77307406 SNOMED-CT PENICILLINS (CLASS) ANAPHYLAXIS (SNOMED-CT: null), SWELLING (SNOMED-CT: null), RASH (SNOMED-CT: null) Active 1932732 SNOMED-CT PORK Anaphylaxis (SNOMED-CT: 41944546) Active CODEINE RASH (SNOMED-CT: null) Active 2670 RxNorm HAZELNUTS Anaphylaxis (SNOMED-CT: 80764844) Active 013325173 SNOMED-CT Plan of Treatment X-RAY 05/05/2022 Encounters Encounter Diagnosis Start Date Code Code Sys tem Pneumonia 09/25/2023 [id number] SNOMED-CT Personal Care Team Section Performer Name Performer Role Active Date Inactive Jeffrey stallings
--- OUTSIDE RECORDS SUMMARY | 2024-05-04 08:59 | XMS_ITS ---
Author Organization Unknown Address [address] [place] [address] [phone] Phone Care Team Providers Care Electronic Pagination System Operator Name Role Phone UMESH MILLAN Registered Nurse Unavailable CARI Persaud Attending Unavailable SHAUNA Mcnally Primary Unavailable UNLISTED PROVIDER - REQUESTED Xhandoff Un available Results [facility] COVID FLU RSV GENEXPE RT - Collect Date/Time: 08/09/2023 22:08 [facility] ID: [id number] [address] [place] [address], [phone] LOINC: 97638-0 Test Value Unit Reference Range Code Code System Flag COVID NEGATIVE Normal: Negative 38942-3 LOINC INFLUENZA A DNA NEGATIVE Normal: Negative 14463-4 LOINC INFLUENZA B DNA NEGATIVE Normal: Negative 32695-0 LOINC RSV DNA NEGATIVE Normal: Negative 74166-4 LOINC MAGNESIUM SERUM* - Collect D ate/Time: 08/09/2023 21:35 [facility] ID: [id number] [address] [place] [address], [address] LOINC: 91150-5 Test Value Unit Reference Range Code Code System Flag MAGNESIUM 2.0 mg/dL L=1.8 H=2.4 42484-7 LOINC ALCOHOL (ETHANOL)* - Collect Date/Time: 08/09/2023 21:35 [facility] ID: [id number] [address] [place] [address], [address] LOINC: 23606-2 Test Value Unit Reference Range Code Code System Flag ALCOHOL (ETHANOL) 251 mg/dL 09706-6 LOINC BASIC METABOLIC PANEL (BMP) - Collect Date/Time: 08/09/2023 21:35 [facility] ID: [id number] [address] [place] [address], [address] LOINC: 33134-1 Test Value Unit Reference Range Code Code System Flag GLUCOSE 113 mg/dL L=70 H=116 2345-7 LOINC BUN 8 mg/dL L=6 H=25 3094-0 LOINC CREATININE 0.77 mg/dL L=0.51 H=0.95 2160-0 LOINC SODIUM SERUM 144 mmol/L L=136 H=145 2951-2 LOINC POTASSIUM SERUM 4.0 mmol/L L=3.4 H=5.2 2823-3 LOINC CHLORIDE SERUM 105 mmol/L L=96 H=110 2075-0 LOINC CARBON DIOXIDE (CO2) 25 mmol/L L=22 H=34 2028-9 LOINC ANION GAP 13.8 mmol/L 77696-0 LOINC CALCIUM SERUM 9.8 mg/dL L=8.2 H=10.2 39788-7 LOINC AGE 52 years eGFR (non-Afr.Amer.) 79 mL/min 39012-3 LOINC eGFR (Afr-Guinean) 95 mL/min 52417-2 LOINC CBC W/ DIFFERENTIAL* - Colle ct Date/Time: 08/09/2023 21:35 [facility] ID: [id number] [address] [place] [address], [address] LOINC: 31830-7 Test Value Unit Reference Range Code Code System Flag WBC 9.08 th/cmm L=5.00 H=10.00 6690-2 LOINC NEUT % 44.2 % L=40.0 H=80.0 LYMPH % 37.6 % L=10.0 H=50.0 MONO % 7.4 % L=2.0 H=12.0 80211-9 LOINC EOS % 9.6 % L=0.0 H=8.0 H BASO % 0.8 % L=0.0 H=3.0 IG % 0.4 % L=0.0 H=1.1 2514-8 LOINC NRBC % 0.0 % L=0.0 H=0.0 91489-0 LOINC NEUT abs count 4.0 th/cmm L=1.6 H=8.4 751-8 LOINC LYMPH abs count 3.4 th/cmm L=1.5 H=4.0 731-0 LOINC MONO abs count 0.7 th/cmm L=0.2 H=1.0 742-7 LOINC EOS abs count 0.9 th/cmm L=0.0 H=0.5 711-2 LOINC H BASO abs count 0.1 th/cmm L=0.0 H=0.2 704-7 LOINC IG abs count 0.0 th/cmm L=0.0 H=0.1 16962-4 LOINC NRBC abs count 0.0 mil/cmm L=0.0 H=0.0 28744-2 LOINC RBC 4.58 mil/cmm L=3.90 H=5.40 789-8 LOINC HEMOGLOBIN 14.5 gm/dL L=12.0 H=16.0 718-7 LOINC HEMATOCRIT 42 % L=37 H=47 4544-3 LOINC MCV 92 fL L=82 H=92 787-2 LOINC MCH 31.7 pg L=27.0 H=31.0 785-6 LOINC H MCHC 34.5 % L=32.0 H=36.0 786-4 LOINC RDW-SD 43.0 fL L=39.0 H=49.0 788-0 LOINC PLATELET COUNT 368 th/cmm L=150 H=450 777-3 LOINC XR CHEST 2V PA AND LATERAL - Completed: 08/09/2023 23:08 LOINC: [facility] [place], [place] [address] 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 FINDINGS: LUNGS: Question of some increased densities in the right inferior hilar region versus overlapping vessels. PLEURA: No pleural abnormality seen. HEART: Normal size. AORTA: Normal diameter. BONES: Unremarkable for age. SOFT TISSUES: Unremarkable. IMPRESSION: Question of right lower lobe infiltrate versus overlying vessels. Report Digitally Signed by Angeli Archer on 08/10/2023 08:04 AM EDT Social History Type Status Start Date End Date Code Code Syst em Smoking History Never smoker (Never Smoked) 214584732 SNOMED CT Sex Female Vital Signs Vital Sign Value Unit [place] Value [place] Unit Date/Time Recent/Initial? Code Code System Systolic Blood Pressure 122 mm[Hg] 08/10/2023 00:33 Most Recent 8480-6 LOINC Diastolic Blood Pressure 96 mm[Hg] 08/10/2023 00:33 Most Recent 8462-4 LOINC Systolic Blood Pressure 150 mm[Hg] 08/09/2023 21:42 Initial 8480-6 LOINC Diastolic Blood Pressure 98 mm[Hg] 08/09/2023 21:42 Initial 8462-4 LOINC O2 Saturation 96 % 2023 00:33 Most Recent 36821- 5 LOINC O2 Saturation 95 % 2023 21:42 Initial 78156- 5 LOINC Pulse 99.0 /min 08/10/2023 00:33 Most Recent 8867-4 LOINC Pulse 140.0 /min 08/09/2023 21:42 Initial 8867-4 LOINC Respiration 15 /min 08/10/19 24 00:33 Most Recent 9279-1 LOINC Respiration 26 /min 08/09/19 21:42 Initial 9279-1 LOINC Temperature 36.4 Brittaney 97.5 F 08/10/19 24 00:46 Most Recent 8310-5 LOINC Temperature 36.0 Brittaney 96.8 F 08/09/19 21:42 Initial 8310-5 [facility] Weight 58.51 kg 129.00 lbs 08/09/2023 21:42 Initial 74930- 7 [facility] Medications Medication Start Date End Date Route Frequency Dose Code Code System Medication Instructions Home Meds hydroCHLOROthiazide 25MG Oral Tablet 06/04/2017 Unknown ORAL DAILY 25 MILLIGRAMS 067338 RxNorm TAKE 25 MILLIGRAMS ORAL DAILY Montelukast Sodium 10MG Oral Tablet 06/04/2017 Unknown ORAL DAILY 10 MILLIGRAMS 20010610 RxNorm TAKE 10 MILLIGRAMS ORAL DAILY Mapap 325MG Oral Tablet 06/10/2017 08/09/19 24 BY MOUTH NEEDED EVERY 4 HOURS 650 MILLIGRAMS 871933 RxNorm TAKE 650 MILLIGRAMS BY MOUTH NEEDED EVERY 4 HOURS ProAir HFA 0.09MG/1Actuation Inhalation Suspension 06/10/2017 Unknown INHAL ATION NEEDED FOUR TIMES A DAY 1 unit(s) 157130 RxNorm 1 EACH INHALATION NEEDED FOUR TIMES A DAY Symbicort 160/4.5 160MCG-4.5MCG/1 Actu Inhalation Aerosol Liquid 2022 Unknown INHAL ATION TWICE A DAY 2 PUFF 5256748 RxNorm 2 PUFF INHALATION TWICE A DAY predniSONE 20MG Oral Tablet 2022 08/09/19 24 ORAL DAILY 3 TABLET 712714 RxNorm TAKE 3 TABLET ORAL DAILY Benzonatate 200MG Oral Capsule, Liquid Filled 2022 08/09/19 24 ORAL NEEDED EVERY 4 HOURS 1 CAPSULE 903480 RxNorm TAKE 1 CAPSULE ORAL NEEDED EVERY 4 HOURS FOR Cough Zithromax 250MG Oral Tablet 08/10/2023 Unknown ORAL DAILY 1 TABLET 022606 RxNorm TAKE 1 TABLET ORAL DAILY Tessalon Perles 100MG Oral Capsule, Liquid Filled 08/10/2023 Unknown ORAL THREE TIMES A DAY 1 CAPSULE 891245 RxNorm TAKE 1 CAPSULE ORAL THREE TIMES A DAY predniSONE 20MG Oral Tablet 08/10/2023 Unknown ORAL DAILY 2 TABLET 452208 RxNorm TAKE 2 TABLET ORAL DAILY Assessment [...] System ACUTE EXACERBATION OF COPD active 185 379545 SNOMED-CT ASTHMA 2022 resolved 025248147 SNOMED-CT HTN 2022 resolved 43344537 SNOMED-CT COPD 2022 resolved 80502584 SNOMED-CT POST-TRAUMATIC STRESS DISORDER 01/02/2024 resolved 90879663 SNOMED-CT DEPRESSION 01/02/2024 resolved 50107170 SNOMED-C T ANXIETY 01/02/2024 resolved 89573961 SNOMED-CT Allergies and Adverse Reactions Allergy Substance Reaction Severity Start Date Concern Status Code Code System SULFA (sulfonamide) Anaphylaxis (SNOMED-CT: 86431271) Active 64022714 SNOMED-CT PENICILLINS (CLASS) ANAPHYLAXIS (SNOMED-CT: null), SWELLING (SNOMED-CT: null), RASH (SNOMED-CT: null) Active 6033095 SNOMED-CT PORK Anaphylaxis (SNOMED-CT: 10474135) Active CODEINE RASH (SNOMED-CT: null) Active 2670 RxNorm HAZELNUTS Anaphylaxis (SNOMED-CT: 94201810) Active 755485057 SNOMED-CT Plan of Treatment X-RAY 05/05/2022 Encounters Encounter Diagnosis Start Date Code Code Sys tem Pneumonia, unspecified organism 08/09/2023 SNOMED-CT Personal Care Team Section Performer Name Performer Role Active Date Inactive Da te
--- OUTSIDE RECORDS SUMMARY | 2024-05-04 09:00 | XMS_ITS ---
Author Organization Unknown Address [address] [place] [address] [phone] Phone Care Team Providers Care Flight Engineer Manager Name Role Phone KEIRA NASH Registered Nurse Unavailable PATIENCE BERGMAN Registered Nurse Unavailable MAC Douglas Attending Unavailable RENNY RAIN Unavailable SHAUNA Mcnally Primary Unavailable UNLISTED PROVIDER - REQUESTED Xhandoff Un available Social History Type Status Start Date End Date Code Code Syst em Smoking History Never smoker (Never Smoked) 791001065 SNOMED CT Sex Female Vital Signs Vital Sign Value Unit [place] Value [place] Unit Date/Time Recent/Initial? Code Code System Body Mass Index 23.78 kg/m2 01/02/2024 02:23 Initial 15588 -5 LOINC Systolic Blood Pressure 114 mm[Hg] 01/02/2024 17:33 Most Recent 8480- 6 LOINC Diastolic Blood Pressure 84 mm[Hg] 01/02/2024 17:33 Most Recent 8462- 4 LOINC Systolic Blood Pressure 117 mm[Hg] 01/02/2024 13:46 Initial 8480- 6 LOINC Diastolic Blood Pressure 102 mm[Hg] 01/02/2024 13:46 Initial 8462- 4 LOINC Body Surface Area 1.61 m2 01/02/2024 02:23 Initial 3140- 1 LOINC Height 157.480 0 cm 62.00 in 01/02/2024 02:23 Initial 8302- 2 LOINC O2 Saturation 99 % 2023 17:33 Most Recent 33429 -5 LOINC O2 Saturation 98 % 2023 13:46 Initial 32685 -5 LOINC Pulse 65.0 /min 01/02/2024 17:33 Most Recent 8867- 4 LOINC Pulse 92.0 /min 01/02/2024 13:46 Initial 8867- 4 LOINC Respiration 18 /min 01/02/20 24 17:33 Most Recent 9279- 1 [facility] Respiration 18 /min 01/02/20 24 13:46 Initial 9279- 1 [facility] Weight 58.97 kg 130.00 lbs 01/02/2024 02:23 Initial 37142 -7 [facility] Medications Medication Start Date End Date Route Frequency Dose Code Code System Medication Instructions Home Meds hydroCHLOROthiazide 25MG Oral Tablet 06/04/2017 Unknown ORAL DAILY 25 MILLIGRAMS 764662 RxNorm TAKE 25 MILLIGRAMS ORAL DAILY Montelukast Sodium 10MG Oral Tablet 06/04/2017 Unknown ORAL DAILY 10 MILLIGRAMS 20010610 RxNorm TAKE 10 MILLIGRAMS ORAL DAILY ProAir HFA 0.09MG/1Actuation Inhalation Suspension 06/10/2017 Unknown INHAL ATION NEEDED FOUR TIMES A DAY 1 unit(s) 260446 RxNorm 1 EACH INHALATION NEEDED FOUR TIMES A DAY Symbicort 160/4.5 160MCG-4.5MCG/1 Actu Inhalation Aerosol Liquid 2022 Unknown INHAL ATION TWICE A DAY 2 PUFF 0483146 RxNorm 2 PUFF INHALATION TWICE A DAY Zithromax 250MG Oral Tablet 08/10/2023 Unknown ORAL DAILY 1 TABLET 513852 RxNorm TAKE 1 TABLET ORAL DAILY Tessalon Perles 100MG Oral Capsule, Liquid Filled 08/10/2023 Unknown ORAL THREE TIMES A DAY 1 CAPSULE 604294 RxNorm TAKE 1 CAPSULE ORAL THREE TIMES A DAY predniSONE 20MG Oral Tablet 08/10/2023 Unknown ORAL DAILY 2 TABLET 353686 RxNorm TAKE 2 TABLET ORAL DAILY Assessment [...] System ACUTE EXACERBATION OF COPD active 185 801147 SNOMED-CT ASTHMA 2022 resolved 755029326 SNOMED-CT HTN 2022 resolved 48325696 SNOMED-CT COPD 2022 resolved 83441735 SNOMED-CT POST-TRAUMATIC STRESS DISORDER 01/02/2024 resolved 40669443 SNOMED-CT DEPRESSION 01/02/2024 resolved 36129542 SNOMED-C T ANXIETY 01/02/2024 resolved 05336803 SNOMED-CT Allergies and Adverse Reactions Allergy Substance Reaction Severity Start Date Concern Status Code Code System SULFA (sulfonamide) Anaphylaxis (SNOMED-CT: 20574196) Active 16001365 SNOMED-CT PENICILLINS (CLASS) ANAPHYLAXIS (SNOMED-CT: null), SWELLING (SNOMED-CT: null), RASH (SNOMED-CT: null) Active 8667625 SNOMED-CT PORK Anaphylaxis (SNOMED-CT: 85246570) Active CODEINE RASH (SNOMED-CT: null) Active 2670 RxNorm HAZELNUTS Anaphylaxis (SNOMED-CT: 64890198) Active 996919981 SNOMED-CT Plan of Treatment X-RAY 05/05/2022 Encounters Encounter Diagnosis Start Date Code Code Sys tem Anxiety disorder, unspecified 01/02/2024 SNOMED-CT Personal Care Team Section Performer Name Performer Role Active Date Inactive Da haylie
[2024-05-04 09:09] LABS: ETHANOL BLOOD 9.5 mg/dL (<10)
[2024-05-04 09:13] LABS: ALT 80 U/L (14-59); AST 91 U/L (15-37); Albumin 4.2 g/dL (3.4-5.0); Alkaline Phosphatase 104 U/L (46-116); Anion Gap 13.6 mmol/L (3-11); BUN 11 mg/dL (7-18); Bilirubin, Total 0.63 mg/dL (0.2-1.0); CO2 24.4 mmol/L (21.0-32.0); CREATININE 0.8 mg/dL (0.55-1.02); Calcium 9.5 mg/dL (8.5-10.1); Chloride 100 mmol/L (98-107); Creatine Kinase 92 U/L (26-192); Estimated GFR 88.05 (mL/min/1.73m2); Glucose 93 mg/dL (74-106); Magnesium 1.5 mg/dL (1.8-2.4); Potassium 3.6 mmol/L (3.5-5.1); Sodium 138 mmol/L (136-145); Total Protein 8.3 g/dL (6.4-8.2)
[2024-05-04] MEDS: Normal Saline 1,000 ML 1000 ML IV (09:16)
[2024-05-04] MEDS: Normal Saline Flush 10 ML SYR IVP (09:28)
[2024-05-04] MEDS: MAGNESIUM SULFATE 2 GM/50 ML BAG IVINF (10:06)
[2024-05-04] MEDS: Losartan 50 MG TAB 100 MG PO (10:33)
[2024-05-04] MEDS: hydroCHLOROthiazide 25 MG TAB PO (10:33)
[2024-05-04] MEDS: dilTIAZem CD 120 MG CAPCR PO (10:51)
[2024-05-04] MEDS: Acetaminophen 500 MG TAB 1000 MG PO (10:59)
[2024-05-04] MEDS: chlordiazePOXIDE 25 MG CAP 50 MG PO (11:42)
[2024-05-04] MEDS: Famotidine 20 MG TAB PO (11:42)
== END 2024-05-04 13:29 | disposition home or self-care (01) ==
PROVIDERS: Emergency Provider Emergency Medicine; PCP Family Medicine
DX: F10.130 Alcohol abuse with withdrawal, uncomplicated (principal); M79.642 Pain in left hand; M79.641 Pain in right hand; I10 Essential (primary) hypertension
CPT/HCPCS: 36415; 80053; 82550; 96365; 96367; 99284; 73130; 80320; 83735; 85025; J2560; J3475